=== PATIENT | female | born 1955 | race Caucasian/White ===

== ENCOUNTER → 2024-08-06 | Outpatient (CLI) | payer MEDICARE | END | disposition home or self-care (01) | LOC: RESCLI 10:50 | PROVIDERS: ATTEND Internal Medicine | DX: I48.91 Unspecified atrial fibrillation (principal); J44.9 Chronic obstructive pulmonary disease, unspecified; I50.9 Heart failure, unspecified; J30.9 Allergic rhinitis, unspecified; G47.00 Insomnia, unspecified; E11.9 Type 2 diabetes mellitus without complications ==